=== PATIENT | male | born 1945 | race Caucasian/White ===

== ENCOUNTER 2020-08-03 17:30 | Observation (INO) | payer MEDICARE, OTHER ==
--- NOTE | 2020-08-03 18:12 | EDM.PDOC ---
ED HPI GENERAL MEDICAL PROBLEM - General Stated Complaint: CHEST PAIN Time Seen by Provider: 08/03/20 18:12 Source of Information: Reports: Patient History Limitations: Reports: No Limitations - History of Present Illness INITIAL COMMENTS - FREE TEXT/NARRATIVE: 75-year-old male who reports that approximately 3 PM today he was at his work and was really not doing anything at the time and he developed an aching pain in his left parasternal chest that did seem to radiate to his right subscapular region at times but did not really seem to have anything that made it better or worse. It did seem to get worse over time and he was having his brakes sometime between 4 and 4:30 he noted that the pain was worse and when he went back to work at 4:30 to 5 PM he told one of the nursing staff and they told him that he needed to go to the hospital for evaluation. Upon arrival here at approximate 5:30 PM he reports the pain basically went away and he is pain-free now as I am evaluating him. He reports that his pain is now 0/10. He states that at its worst it was a 4/10. There was no nausea or vomiting. No shortness of breath. No arm pain, no neck pain, no jaw pain. There was no pain with movement of his arm or palpation. He did not feel the pain seemed to change with activity or with rest. There was no weakness or dizziness. No syncope or presyncope. He reports that he has had this pain in the past and the pain seemed to come on in a similar manner and lasted for about an hour and then seemed to go away. He has sought no medical care in regard to this. He did have cystoscopy with bladder stone removal about 5-6 weeks ago and had no problems during that surgery. There are other associated signs or symptoms. There are no other modifying factors. It should be noted that the patient had Covid 19 in March 2020 and he has also had Covid vaccines. He is tested weakly at [facility] and had a test on that is not back yet. Onset: Today (He p.m.) Duration: Resolved Prior to Arrival (Resolved at arrival.) Location: Reports: Chest Quality: Reports: Ache Severity: Moderate Improves with: Reports: None Worsens with: Reports: None Context: Reports: Other (As above) Associated Symptoms: Reports: No Other Symptoms (Other than as above.) Treatments [employer]: Reports: Other (see below) (Nothing.) - Related Data Allergies Allergy/AdvReac Type Severity Reaction Status Date / Time No Known Allergies Allergy Verified 08/03/20 18:15 Past Medical History Cardiovascular History: Reports: Hypertension Gastrointestinal History: Reports: GERD Genitourinary History: Reports: Other (See Below) (Bladder stones) Psychiatric History: Reports: 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 Last Hemoglobin A1c was 7.8.) Oncologic (Cancer) History: Reports: Bladder - Past Surgical History GI Surgical History: Reports: Colonoscopy, EGD Male Surgical History: Reports: TURBT-Transurethral Resection of Bladder Tumor, Other (See Below) (Removal of bladder stone) Social & Family History - Tobacco Use Tobacco Use Status *Q: Former Tobacco User (Quit in 2005.) - Alcohol Use Alcohol Use History: Yes Alcohol Use in Last Twelve Months: No Alcohol Use Comment: Sober for the past 20 years. 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[employer]) ED ROS GENERAL - Review of Systems Review Of Systems: See Below Constitutional: Reports: No Symptoms HEENT: Reports: No Symptoms Respiratory: Reports: No Symptoms Cardiovascular: Reports: Chest Pain GI/Abdominal: Reports: No Symptoms : Reports: No Symptoms Musculoskeletal: Reports: No Symptoms Skin: Reports: No Symptoms Neurological: Reports: No Symptoms Psychiatric: Reports: No Symptoms Hematologic/Lymphatic: Reports: No Symptoms Immunologic: Reports: No Symptoms ED EXAM, GENERAL - Physical Exam Exam: See Below Exam Limited By: No Limitations General Appearance: Alert, WD/WN, No Apparent Distress Eye Exam: Bilateral Eye: EOMI, Normal Inspection, PERRL Ears: Normal External Exam, Hearing Grossly Normal Ear Exam: Bilateral Ear: Auricle Normal Nose: Normal Inspection, Normal Mucosa, No Blood Throat/Mouth: Normal Inspection, Normal Oropharynx, Normal Voice, No Airway Compromise Head: Atraumatic, Normocephalic Neck: Normal Inspection, Supple, Non-Tender, Full Range of Motion Respiratory/Chest: No Respiratory Distress, Lungs Clear, Normal Breath Sounds, No Accessory Muscle Use, Chest Non-Tender Cardiovascular: Normal Peripheral Pulses, Regular Rate, Rhythm, No Edema, No JVD Peripheral Pulses: 2+: Radial (L), Radial (R), Dorsalis Pedis (L), Dorsalis Pedis (R) GI/Abdominal: Normal Bowel Sounds, Soft, Non-Tender, No Mass Back Exam: Normal Inspection, Full Range of Motion Extremities: Normal Inspection, Normal Range of Motion, Non-Tender, No Pedal Edema, Normal Capillary Refill Neurological: Alert, Oriented, CN II-XII Intact, Normal Cognition, No Motor/Sensory Deficits Psychiatric: Normal Affect Skin Exam: Warm, Dry, Intact, Normal Color, No Rash #1 Interpretation EKG Date: 08/03/20 Time: 17:46 Rhythm: NSR Rate (Beats/Min): 74 [place]: Normal P-Wave: Present QRS: Normal ST-T: Normal QT: Normal Comparison: NA - No Prior EKG Course - Vital Signs Last Recorded V/S: Last Vital Signs Temp 36.6 C 08/03/20 18:28 Pulse 75 08/03/20 18:28 Resp 18 08/03/20 18:28 BP 132/64 08/03/20 18:28 Pulse Ox 97 08/03/20 18:28 - Orders/Labs/Meds Orders: Active Orders 24 hr Category Date Time Status Admission Status [Patient Status] [ADT] Routine ADT 08/03/20 19:26 Active Blood Glucose Check, Bedside [RC] QIDACANDBED Care 08/03/20 19:28 Active Cardiac Monitoring [RC] .As Directed Care 08/03/20 19:26 Active EKG Documentation Completion [RC] ASDIRECTED Care 08/03/20 18:15 Active Height and Weight [RC] UPON Care 08/03/20 19:28 Active Oxygen Therapy [RC] PRN Care 08/03/20 19:28 Active VTE/DVT Education [RC] Per Unit Routine Care 08/03/20 19:28 Active Vital Signs [RC] Q4H Care 08/03/20 19:28 Active Consistent Carbohydrate Diet [DIET] Diet 08/03/20 Dinner Active Chest 1V Frontal [CR] Stat Exams 08/03/20 18:50 Taken BASIC METABOLIC PANEL,BMP [CHEM] AM Lab 08/04/20 05:11 Ordered CBC W/O DIFF,HEMOGRAM [HEME] AM Lab 08/04/20 05:11 Ordered UA W/MICROSCOPIC [URIN] Stat Lab 08/03/20 19:45 Received Acetaminophen [TylenoL] Med 08/03/20 19:28 Active 650 mg PO Q4H PRN Magnesium Sulfate/Water [Magnesium Sulfate in Water 2 Med 08/03/20 19:30 Active GM/50 ML] 2 gm in 50 ml IV ONETIME Ondansetron [Zofran] Med 08/03/20 19:28 Active 4 mg IV Q6H PRN Sodium Chloride 0.9% [Saline Flush] Med 08/03/20 18:15 Active 10 ml FLUSH ASDIRECTED PRN Peripheral IV Insertion Adult [OM.PC] Routine Oth 08/03/20 18:15 Ordered Resuscitation Status Routine Resus Stat 08/03/20 19:28 Ordered EKG 12 Lead [EK] Routine Ther 08/03/20 18:15 Ordered Medication Orders Acetaminophen (Acetaminophen 325 Mg Tab) 650 mg PO Q4H PRN PRN Reason: Pain (Mild 1-3)/fever Magnesium Sulfate (Magnesium Sulfate In Water 2 Gm/50 Ml) 2 gm in 50 mls @ 100 mls/hr IV ONETIME CR Ondansetron HCl (Ondansetron 4 Mg/2 Ml Sdv) 4 mg IV Q6H PRN PRN Reason: Nausea/Vomiting Sodium Chloride (Sodium Chloride 0.9% 10 Ml Syringe) 10 ml FLUSH ASDIRECTED PRN PRN Reason: Keep Vein Open Labs: Laboratory Tests 08/03/20 08/03/20 08/03/20 Range/Units 18:10 18:10 18:10 WBC 7.8 (3.2-10.1) x10-3/uL RBC 5.83 (3.90-5.90) x10(6)uL Hgb 17.3 (12.9-17.7) g/dL Hct 51.5 H (38.3-50.1) % MCV 88.4 (80.8-98.7) fL MCH 29.7 (27.0-33.3) pg MCHC 33.6 (28.7-35.3) g/dL RDW 14.6 (12.4-15.0) % Plt Count 138 (117-477) x10(3)uL MPV 10.1 (6.7-11.0) fL Neut % (Auto) 76.0 H (40.3-71.8) % Lymph % (Auto) 13.6 L (15.8-45.3) % [place] % (Auto) 8.5 (5.5-15.2) % Eos % (Auto) 1.3 (0.1-6.8) % Baso % (Auto) 0.6 (0.3-3.8) % Neut # (Auto) 6.0 (1.7-6.9) x10-3/uL Lymph # (Auto) 1.1 (0.5-4.5) x10-3/uL [place] # (Auto) 0.7 (0.0-1.2) x10-3/uL Eos # (Auto) 0.1 (0.0-0.6) x10-3/uL Baso # (Auto) 0.0 (0.0-0.3) x10-3/uL D-Dimer, Quantitative (0.0-0.59) mg/LFEU Sodium 139 (135-145) mmol/L Potassium 3.5 (3.5-5.3) mmol/L Chloride 101 (100-110) mmol/L Carbon Dioxide 26 (21-32) mmol/L BUN 17 (7-18) mg/dL Creatinine 1.3 (0.70-1.30) mg/dL Est Cr Clr Drug Dosing 50.69 mL/min Estimated GFR (MDRD) 54 L (>60) BUN/Creatinine Ratio 13.1 (9-20) Glucose 155 H (80-116) mg/dL Calcium 8.9 (8.6-10.2) mg/dL Magnesium 1.7 L (1.8-2.5) mg/dL Total Bilirubin 0.5 (0.1-1.3) mg/dL AST 26 H (5-25) IU/L ALT 49 H (12-36) U/L Alkaline Phosphatase 66 (56-112) IU/L Troponin I 18.4 (4.0-60.3) pg/mL Total Protein 7.6 (6.0-8.0) g/dL Albumin 3.7 (3.2-4.6) g/dL Globulin 3.9 g/dL Albumin/Globulin Ratio 1.0 03// Range/Units 18:10 WBC (3.2-10.1) x10-3/uL RBC (3.90-5.90) x10(6)uL Hgb (12.9-17.7) g/dL Hct (38.3-50.1) % MCV (80.8-98.7) fL MCH (27.0-33.3) pg MCHC (28.7-35.3) g/dL RDW (12.4-15.0) % Plt Count (117-477) x10(3)uL MPV (6.7-11.0) fL Neut % (Auto) (40.3-71.8) % Lymph % (Auto) (15.8-45.3) % [place] % (Auto) (5.5-15.2) % Eos % (Auto) (0.1-6.8) % Baso % (Auto) (0.3-3.8) % Neut # (Auto) (1.7-6.9) x10-3/uL Lymph # (Auto) (0.5-4.5) x10-3/uL [place] # (Auto) (0.0-1.2) x10-3/uL Eos # (Auto) (0.0-0.6) x10-3/uL Baso # (Auto) (0.0-0.3) x10-3/uL D-Dimer, Quantitative 0.28 (0.0-0.59) mg/LFEU Sodium (135-145) mmol/L Potassium (3.5-5.3) mmol/L Chloride (100-110) mmol/L Carbon Dioxide (21-32) mmol/L BUN (7-18) mg/dL Creatinine (0.70-1.30) mg/dL Est Cr Clr Drug Dosing mL/min Estimated GFR (MDRD) (>60) BUN/Creatinine Ratio (9-20) Glucose (80-116) mg/dL Calcium (8.6-10.2) mg/dL Magnesium (1.8-2.5) mg/dL Total Bilirubin (0.1-1.3) mg/dL AST (5-25) IU/L ALT (12-36) U/L Alkaline Phosphatase (56-112) IU/L Troponin I (4.0-60.3) pg/mL Total Protein (6.0-8.0) g/dL Albumin (3.2-4.6) g/dL Globulin g/dL Albumin/Globulin Ratio Meds: Medications Generic Name Dose Route Start Last Admin Trade Name Freq PRN Reason Stop Dose Admin Acetaminophen 650 mg 08/03/20 19:28 Acetaminophen 325 Mg Tab PO Q4H PRN Pain (Mild 1-3)/fever Magnesium Sulfate 2 gm in 50 mls @ 100 mls/hr 08/03/20 19:30 Magnesium Sulfate In Water 2 Gm/50 Ml IV ONETIME CR Ondansetron HCl 4 mg 08/03/20 19:28 Ondansetron 4 Mg/2 Ml Sdv IV Q6H PRN Nausea/Vomiting Sodium Chloride 10 ml 08/03/20 18:15 Sodium Chloride 0.9% 10 Ml Syringe FLUSH ASDIRECTED PRN Keep Vein Open Discontinued Medications Generic Name Dose Route Start Last Admin Trade Name Freq PRN Reason Stop Dose Admin Aspirin 324 mg 08/03/20 18:49 08/03/20 19:12 Aspirin 81 Mg Tab.Chew PO 08/03/20 18:50 324 mg ONETIME ONE Administration Enoxaparin Sodium 90 mg 08/03/20 20:01 Enoxaparin 100 Mg/1 Ml Syringe SUBCUT 08/03/20 20:02 ONETIME ONE - Radiology Interpretation Free Text/Narrative:: Portable chest x-ray shows no acute disease. There is evidence of mild COPD changes. - Re-Assessments/Exams Free Text/Narrative Re-Assessment/Exam: 08/03/20 19:30: Initial troponin was normal. He remains chest pain-free. His EKG also was reassuring and showed no evidence of an injury pattern or any evidence of a current of ischemia. He has had this chest pain in the past and he is a diabetic male. I feel that his risk for coronary artery disease are moderate and I feel that he would benefit from admission with serial cardiac enzymes and cardiac monitoring. I feel that an observation admission would be appropriate for this and I discussed this with the patient and he would be in agreement with this plan. The patient was given aspirin 324 mg by mouth. He continues to remain chest pain-free at present. He is hemodynamically and neurologically stable. I will place admission orders. Evaluation and care will be transferred to Dr. Sullivan at 7 AM on 08/04/2020. Overnight, Dr. Thayer will be the hospitalist following the patient. 08/03/20 20:05: It should be noted that the patient was given Lovenox 90 mg subcutaneously at around 8 PM tonight. Any further dosing would be up to Dr. Sullivan. The patient's rapid covid is pending. Departure - Departure Time of Disposition: 19:50 Disposition: Refer to Observation Condition: Fair (Stable.) Clinical Impression: Diabetes mellitus type 2, diet-controlled Chest pain Qualifiers: Chest pain type: unspecified Qualified Code(s): R07.9 - Chest pain, unspecified Sepsis Event Note (ED) - Focused Exam Vital Signs: Vital Signs Temp Pulse Resp BP Pulse Ox 08/03/20 18:28 36.6 C 75 18 132/64 97 - My Orders Last 24 Hours: My Active Orders 08/03/20 Dinner Consistent Carbohydrate Diet [DIET] 08/03/20 18:15 EKG Documentation Completion [RC] ASDIRECTED Sodium Chloride 0.9% [Saline Flush] 10 ml FLUSH ASDIRECTED PRN Peripheral IV Insertion Adult [OM.PC] Routine EKG 12 Lead [EK] Routine 08/03/20 18:50 Chest 1V Frontal [CR] Stat 08/03/20 19:26 Admission Status [Patient Status] [ADT] Routine Cardiac Monitoring [RC] .As Directed 08/03/20 19:28 Blood Glucose Check, Bedside [RC] QIDACANDBED Height and Weight [RC] UPON Oxygen Therapy [RC] PRN VTE/DVT Education [RC] Per Unit Routine Vital Signs [RC] Q4H Acetaminophen [TylenoL] 650 mg PO Q4H PRN Ondansetron [Zofran] 4 mg IV Q6H PRN Resuscitation Status Routine 08/03/20 19:30 Magnesium Sulfate/Water [Magnesium Sulfate in Water 2 GM/50 ML] 2 gm in 50 ml IV ONETIME 08/03/20 19:45 UA W/MICROSCOPIC [URIN] Stat 08/04/20 05:11 BASIC METABOLIC PANEL,BMP [CHEM] AM CBC W/O DIFF,HEMOGRAM [HEME] AM - Assessment/Plan Last 24 Hours: My Active Orders 08/03/20 Dinner Consistent Carbohydrate Diet [DIET] 08/03/20 18:15 EKG Documentation Completion [RC] ASDIRECTED Sodium Chloride 0.9% [Saline Flush] 10 ml FLUSH ASDIRECTED PRN Peripheral IV Insertion Adult [OM.PC] Routine EKG 12 Lead [EK] Routine 08/03/20 18:50 Chest 1V Frontal [CR] Stat 08/03/20 19:26 Admission Status [Patient Status] [ADT] Routine Cardiac Monitoring [RC] .As Directed 08/03/20 19:28 Blood Glucose Check, Bedside [RC] QIDACANDBED Height and Weight [RC] UPON Oxygen Therapy [RC] PRN VTE/DVT Education [RC] Per Unit Routine Vital Signs [RC] Q4H Acetaminophen [TylenoL] 650 mg PO Q4H PRN Ondansetron [Zofran] 4 mg IV Q6H PRN Resuscitation Status Routine 08/03/20 19:30 Magnesium Sulfate/Water [Magnesium Sulfate in Water 2 GM/50 ML] 2 gm in 50 ml IV ONETIME 08/03/20 19:45 UA W/MICROSCOPIC [URIN] Stat 08/04/20 05:11 BASIC METABOLIC PANEL,BMP [CHEM] AM CBC W/O DIFF,HEMOGRAM [HEME] AM
[2020-08-03] MEDS ORDERED: Sodium Chloride 0.9% 10 ML Syringe FLUSH PRN (18:15)
[2020-08-03] MEDS ORDERED: Aspirin 81 MG Tab.Chew PO ONE (18:49)
[2020-08-03] MEDS ORDERED: Acetaminophen 325 MG Tab PO PRN (19:28)
[2020-08-03] MEDS ORDERED: Ondansetron 4 MG/2 ML SDV IV PRN (19:28)
[2020-08-03] MEDS ORDERED: Magnesium Sulfate/Water 2 GM/50 ML BAG IV SCH (19:30)
[2020-08-03] MEDS ORDERED: Enoxaparin 100 MG/1 ML Syringe SUBCUT ONE (20:01)
[2020-08-04] MEDS ORDERED: Non-Formulary Medication 1 Each (Omeprazole [Omeprazole] 20 MG Cap.Cr) PO SCH (09:00)
[2020-08-04] MEDS ORDERED: Hydrochlorothiazide/Losartan 12.5-100 mg Tab PO SCH (09:00)
[2020-08-04] MEDS ORDERED: Aspirin 81 MG Tab.Chew PO SCH (09:00)
[2020-08-04] MEDS ORDERED: Magnesium Oxide 400 MG Tab PO SCH (09:30)
--- NOTE | 2020-08-04 10:59 | CR ---
CHEST ONE VIEW [id number] INDICATION: Chest pain. AP portable upright view of the chest was obtained 08/03/2020--no comparisons. The heart appears to be near the upper limits of normal in size. Minimal calcification suggested in the arch of the aorta. Overlying EKG leads are noted. Somewhat heavy markings are noted in the mid to lower lung blankenship, most likely fibrotic in nature, without a definite active infiltrate or effusion. Diaphragm leads are somewhat flattened with hyperaeration suggesting COPD--correlate clinically. IMPRESSION: 1. No definite acute process. 2. Probable ASHD. 3. Probable COPD--correlate clinically. 4. Probable mild pulmonary fibrosis. MTDD
--- NOTE | 2020-08-04 12:11 | PCM.HP.2 ---
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 He states the pain remained central, not worse or better with rest or exertion, did not feel deep, more in the bone. He states he has been having pain under his right shoulder blade on and off since he had Covid in March. He was not hospitalized, lost his sense of taste & smell, which is still not back to normal. He gets weekly tested at the half-way, he was negative today. After arrival to the ER, the pain resolved without intervention. EKGs did not show any ischemic changes. 2 sets of troponin were negative. Magnesium was 1.7. He normally takes Magnesium but had stopped a few months ago. Was also taking OTC supplements for his cholesterol that he also had stopped, has been eating more jerky, chocolate and [place] pop. His HgbA1c at last check was 7.7, he just had blood work done on 07/31 with his primary doctor, Maryanne Orosco D.O. at [facility]. He has not seen her to go over the labs yet. He had bladder cancer a few months ago, was surgical removed, did not have any chemotherapy. He also had bladder stone removed a month ago, has had hematuria with it, worsened today after received Lovenox injection yesterday in ER. Mid-Anterior Chest Pain Score (Numeric/FACES): 0 - Related Data Allergies/Adverse Reactions: Allergies Allergy/AdvReac Type Severity Reaction Status Date / Time No Known Allergies Allergy Verified 08/03/20 18:15 Home Medications: Home Meds Aspirin 81 mg PO DAILY 08/04/20 [History] Losartan/Hydrochlorothiazide [Losartan-HCTZ 100-12.5 MG] 1 tab PO DAILY 08/04/20 [History] Omeprazole 20 mg PO DAILY 08/04/20 [History] Past Medical History HEENT History: Reports: Impaired Vision Cardiovascular History: Reports: Hypertension Gastrointestinal History: Reports: GERD Genitourinary History: Reports: Other (See Below) (bladder cancer, bladder s tone) Psychiatric History: Reports: Addiction Other Psychiatric History: 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, Smoked , and drank a lot of caffieine, but stooped in 2005 Endocrine/Metabolic History: Reports: Diabetes, Type II Oncologic (Cancer) History: Reports: Bladder - Past Surgical History GI Surgical History: Reports: Colonoscopy, EGD Male Surgical History: Reports: TURBT-Transurethral Resection of Bladder Tumor, Other (See Below) Social & Family History - Family History Family Medical History: No Pertinent Family History - Tobacco Use Tobacco Use Status *Q: Never Tobacco User Years of Tobacco use: 35 Used Tobacco, but Quit: Yes Month/Year Tobacco Last Used: 05/07/2006 - Caffeine Use Caffeine Use: Reports: Coffee - Recreational Drug Use Recreational Drug Use: No 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 Denies: Post Nasal Drip, Sinus Congestion, Sore Throat, Visual Changes Pulmonary: Denies: Shortness of Breath, Cough Cardiovascular: Denies: Chest Pain, Dyspnea on Exertion, Edema, Lightheadedness Gastrointestinal: Denies: Abdominal Pain, Constipation, Diarrhea, Nausea, Vomiting Genitourinary: Reports: Hematuria. Denies: Frequency, Urgency Musculoskeletal: Denies: Shoulder Pain, Arm Pain Skin: Reports: No Symptoms Psychiatric: Reports: No Symptoms Hematologic/Lymphatic: Reports: No Symptoms Immunologic: Reports: No Symptoms Exam - Exam Exam: See Below - Vital Signs Vital Signs: Last Vital Signs Temp 97.8 F 08/04/20 08:00 Pulse 71 08/04/20 08:00 Resp 18 08/04/20 08:00 BP 148/80 H 08/04/20 08:00 Pulse Ox 94 L 08/04/20 08:00 Weight: 199 lb 5 oz - Exam Quality Assessment: No: Supplemental Oxygen General: Alert, Oriented, Cooperative. No: Mild Distress HEENT: PERRLA, Conjunctiva Clear, EOMI, Hearing Intact, Mucosa Moist & [place] Neck: Supple, Trachea Midline. No: Lymphadenopathy Lungs: Clear to Auscultation, Normal Respiratory Effort, Other (Chest wall: NT). No: Crackles, Wheezing Cardiovascular: Regular Rate, Regular Rhythm. No: Systolic Murmur, Diastolic Murmur GI/Abdominal Exam: Normal Bowel Sounds, Soft, Non-Tender, No Distention (Male) Exam: Deferred Rectal (Males) Exam: Deferred Extremities: No Pedal Edema, Normal Capillary Refill Peripheral Pulses: 2+: Radial (L), Radial (R) Skin: Warm, Dry, Intact Neurological: Cranial Nerves Intact, Normal Speech Neuro Extensive - Mental Status: Normal Mood/Affect, Normal Cognition - Patient Data Lab Results Last 24 hrs: Laboratory Results - last 24 hr 08/03/20 08/03/20 08/03/20 Range/Units 18:10 18:10 18:10 WBC 7.8 (3.2-10.1) x10-3/uL RBC 5.83 (3.90-5.90) x10(6)uL Hgb 17.3 (12.9-17.7) g/dL Hct 51.5 H (38.3-50.1) % MCV 88.4 (80.8-98.7) fL MCH 29.7 (27.0-33.3) pg MCHC 33.6 (28.7-35.3) g/dL RDW 14.6 (12.4-15.0) % Plt Count 138 (117-477) x10(3)uL MPV 10.1 (6.7-11.0) fL Neut % (Auto) 76.0 H (40.3-71.8) % Lymph % (Auto) 13.6 L (15.8-45.3) % [place] % (Auto) 8.5 (5.5-15.2) % Eos % (Auto) 1.3 (0.1-6.8) % Baso % (Auto) 0.6 (0.3-3.8) % Neut # (Auto) 6.0 (1.7-6.9) x10-3/uL Lymph # (Auto) 1.1 (0.5-4.5) x10-3/uL [place] # (Auto) 0.7 (0.0-1.2) x10-3/uL Eos # (Auto) 0.1 (0.0-0.6) x10-3/uL Baso # (Auto) 0.0 (0.0-0.3) x10-3/uL D-Dimer, Quantitative (0.0-0.59) mg/LFEU Sodium 139 (135-145) mmol/L Potassium 3.5 (3.5-5.3) mmol/L Chloride 101 (100-110) mmol/L Carbon Dioxide 26 (21-32) mmol/L BUN 17 (7-18) mg/dL Creatinine 1.3 (0.70-1.30) mg/dL Est Cr Clr Drug Dosing 50.69 mL/min Estimated GFR (MDRD) 54 L (>60) BUN/Creatinine Ratio 13.1 (9-20) Glucose 155 H (80-116) mg/dL POC Glucose (74-100) mg/dL Calcium 8.9 (8.6-10.2) mg/dL Magnesium 1.7 L (1.8-2.5) mg/dL Total Bilirubin 0.5 (0.1-1.3) mg/dL AST 26 H (5-25) IU/L ALT 49 H (12-36) U/L Alkaline Phosphatase 66 (56-112) IU/L Troponin I 18.4 (4.0-60.3) pg/mL Total Protein 7.6 (6.0-8.0) g/dL Albumin 3.7 (3.2-4.6) g/dL Globulin 3.9 g/dL Albumin/Globulin Ratio 1.0 Triglycerides (15-150) mg/dL Cholesterol (50-200) mg/dL LDL Cholesterol Direct (60-130) mg/dL HDL Cholesterol (40-75) mg/dL Cholesterol/HDL Ratio (0-5) Urine Color (YELLOW) Urine Appearance (CLEAR) Urine pH (5.0-6.5) Ur Specific [place] (1.010-1.025) Urine Protein (NEGATIVE) mg/dL Urine Glucose (UA) (NORMAL) mg/dL Urine Ketones (NEGATIVE) mg/dL Urine Occult Blood (NEGATIVE) Urine Nitrite (NEGATIVE) Urine Bilirubin (NEGATIVE) Urine Urobilinogen (NEGATIVE) mg/dL Ur Leukocyte Esterase (NEGATIVE) Urine RBC (0-5) Urine WBC (0-5) Ur Squamous Epith Cells (NS,R,O) Urine Bacteria (NS) SARS-CoV-2 RNA (RICK) (NEGATIVE) 08/03/20 08/03/20 08/03/20 Range/Units 18:10 19:25 19:45 WBC (3.2-10.1) x10-3/uL RBC (3.90-5.90) x10(6)uL Hgb (12.9-17.7) g/dL Hct (38.3-50.1) % MCV (80.8-98.7) fL MCH (27.0-33.3) pg MCHC (28.7-35.3) g/dL RDW (12.4-15.0) % Plt Count (117-477) x10(3)uL MPV (6.7-11.0) fL Neut % (Auto) (40.3-71.8) % Lymph % (Auto) (15.8-45.3) % [place] % (Auto) (5.5-15.2) % Eos % (Auto) (0.1-6.8) % Baso % (Auto) (0.3-3.8) % Neut # (Auto) (1.7-6.9) x10-3/uL Lymph # (Auto) (0.5-4.5) x10-3/uL [place] # (Auto) (0.0-1.2) x10-3/uL Eos # (Auto) (0.0-0.6) x10-3/uL Baso # (Auto) (0.0-0.3) x10-3/uL D-Dimer, Quantitative 0.28 (0.0-0.59) mg/LFEU Sodium (135-145) mmol/L Potassium (3.5-5.3) mmol/L Chloride (100-110) mmol/L Carbon Dioxide (21-32) mmol/L BUN (7-18) mg/dL Creatinine (0.70-1.30) mg/dL Est Cr Clr Drug Dosing mL/min Estimated GFR (MDRD) (>60) BUN/Creatinine Ratio (9-20) Glucose (80-116) mg/dL POC Glucose (74-100) mg/dL Calcium (8.6-10.2) mg/dL Magnesium (1.8-2.5) mg/dL Total Bilirubin (0.1-1.3) mg/dL AST (5-25) IU/L ALT (12-36) U/L Alkaline Phosphatase (56-112) IU/L Troponin I (4.0-60.3) pg/mL Total Protein (6.0-8.0) g/dL Albumin (3.2-4.6) g/dL Globulin g/dL Albumin/Globulin Ratio Triglycerides (15-150) mg/dL Cholesterol (50-200) mg/dL LDL Cholesterol Direct (60-130) mg/dL HDL Cholesterol (40-75) mg/dL Cholesterol/HDL Ratio (0-5) Urine Color Yellow (YELLOW) Urine Appearance Clear (CLEAR) Urine pH 6.0 (5.0-6.5) Ur Specific [place] 1.020 (1.010-1.025) Urine Protein Negative (NEGATIVE) mg/dL Urine Glucose (UA) Normal (NORMAL) mg/dL Urine Ketones Negative (NEGATIVE) mg/dL Urine Occult Blood Large H (NEGATIVE) Urine Nitrite Negative (NEGATIVE) Urine Bilirubin Negative (NEGATIVE) Urine Urobilinogen Normal (NEGATIVE) mg/dL Ur Leukocyte Esterase Negative (NEGATIVE) Urine RBC 5-10 H (0-5) Urine WBC 0-5 (0-5) Ur Squamous Epith Cells Occasional (NS,R,O) Urine Bacteria Few H (NS) SARS-CoV-2 RNA (RICK) Negative (NEGATIVE) 08/03/20 08/04/20 08/04/20 Range/Units 21:25 06:05 06:05 WBC 8.7 (3.2-10.1) x10-3/uL RBC 6.05 H (3.90-5.90) x10(6)uL Hgb 18.0 H (12.9-17.7) g/dL Hct 53.8 H (38.3-50.1) % MCV 89.0 (80.8-98.7) fL MCH 29.7 (27.0-33.3) pg MCHC 33.4 (28.7-35.3) g/dL RDW 14.8 (12.4-15.0) % Plt Count 140 (117-477) x10(3)uL MPV (6.7-11.0) fL Neut % (Auto) (40.3-71.8) % Lymph % (Auto) (15.8-45.3) % [place] % (Auto) (5.5-15.2) % Eos % (Auto) (0.1-6.8) % Baso % (Auto) (0.3-3.8) % Neut # (Auto) (1.7-6.9) x10-3/uL Lymph # (Auto) (0.5-4.5) x10-3/uL [place] # (Auto) (0.0-1.2) x10-3/uL Eos # (Auto) (0.0-0.6) x10-3/uL Baso # (Auto) (0.0-0.3) x10-3/uL D-Dimer, Quantitative (0.0-0.59) mg/LFEU Sodium 133 L (135-145) mmol/L Potassium 4.1 (3.5-5.3) mmol/L Chloride 105 (100-110) mmol/L Carbon Dioxide 24 (21-32) mmol/L BUN 18 (7-18) mg/dL Creatinine 1.0 (0.70-1.30) mg/dL Est Cr Clr Drug Dosing 67.98 mL/min Estimated GFR (MDRD) > 60 (>60) BUN/Creatinine Ratio 18.0 (9-20) Glucose 133 H (80-116) mg/dL POC Glucose (74-100) mg/dL Calcium 9.1 (8.6-10.2) mg/dL Magnesium (1.8-2.5) mg/dL Total Bilirubin (0.1-1.3) mg/dL AST (5-25) IU/L ALT (12-36) U/L Alkaline Phosphatase (56-112) IU/L Troponin I 53.7 (4.0-60.3) pg/mL Total Protein (6.0-8.0) g/dL Albumin (3.2-4.6) g/dL Globulin g/dL Albumin/Globulin Ratio Triglycerides (15-150) mg/dL Cholesterol (50-200) mg/dL LDL Cholesterol Direct (60-130) mg/dL HDL Cholesterol (40-75) mg/dL Cholesterol/HDL Ratio (0-5) Urine Color (YELLOW) Urine Appearance (CLEAR) Urine pH (5.0-6.5) Ur Specific [place] (1.010-1.025) Urine Protein (NEGATIVE) mg/dL Urine Glucose (UA) (NORMAL) mg/dL Urine Ketones (NEGATIVE) mg/dL Urine Occult Blood (NEGATIVE) Urine Nitrite (NEGATIVE) Urine Bilirubin (NEGATIVE) Urine Urobilinogen (NEGATIVE) mg/dL Ur Leukocyte Esterase (NEGATIVE) Urine RBC (0-5) Urine WBC (0-5) Ur Squamous Epith Cells (NS,R,O) Urine Bacteria (NS) SARS-CoV-2 RNA (RICK) (NEGATIVE) 08/04/20 08/04/20 08/04/20 Range/Units 06:05 06:05 11:38 WBC (3.2-10.1) x10-3/uL RBC (3.90-5.90) x10(6)uL Hgb (12.9-17.7) g/dL Hct (38.3-50.1) % MCV (80.8-98.7) fL MCH (27.0-33.3) pg MCHC (28.7-35.3) g/dL RDW (12.4-15.0) % Plt Count (117-477) x10(3)uL MPV (6.7-11.0) fL Neut % (Auto) (40.3-71.8) % Lymph % (Auto) (15.8-45.3) % [place] % (Auto) (5.5-15.2) % Eos % (Auto) (0.1-6.8) % Baso % (Auto) (0.3-3.8) % Neut # (Auto) (1.7-6.9) x10-3/uL Lymph # (Auto) (0.5-4.5) x10-3/uL [place] # (Auto) (0.0-1.2) x10-3/uL Eos # (Auto) (0.0-0.6) x10-3/uL Baso # (Auto) (0.0-0.3) x10-3/uL D-Dimer, Quantitative (0.0-0.59) mg/LFEU Sodium (135-145) mmol/L Potassium (3.5-5.3) mmol/L Chloride (100-110) mmol/L Carbon Dioxide (21-32) mmol/L BUN (7-18) mg/dL Creatinine (0.70-1.30) mg/dL Est Cr Clr Drug Dosing mL/min Estimated GFR (MDRD) (>60) BUN/Creatinine Ratio (9-20) Glucose (80-116) mg/dL POC Glucose 106 H (74-100) mg/dL Calcium (8.6-10.2) mg/dL Magnesium (1.8-2.5) mg/dL Total Bilirubin (0.1-1.3) mg/dL AST (5-25) IU/L ALT (12-36) U/L Alkaline Phosphatase (56-112) IU/L Troponin I (4.0-60.3) pg/mL Total Protein (6.0-8.0) g/dL Albumin (3.2-4.6) g/dL Globulin g/dL Albumin/Globulin Ratio Triglycerides 921 H (15-150) mg/dL Cholesterol 235 H (50-200) mg/dL LDL Cholesterol Direct 95 (60-130) mg/dL HDL Cholesterol 22 L (40-75) mg/dL Cholesterol/HDL Ratio 10.7 H (0-5) Urine Color (YELLOW) Urine Appearance (CLEAR) Urine pH (5.0-6.5) Ur Specific [place] (1.010-1.025) Urine Protein (NEGATIVE) mg/dL Urine Glucose (UA) (NORMAL) mg/dL Urine Ketones (NEGATIVE) mg/dL Urine Occult Blood (NEGATIVE) Urine Nitrite (NEGATIVE) Urine Bilirubin (NEGATIVE) Urine Urobilinogen (NEGATIVE) mg/dL Ur Leukocyte Esterase (NEGATIVE) Urine RBC (0-5) Urine WBC (0-5) Ur Squamous Epith Cells (NS,R,O) Urine Bacteria (NS) SARS-CoV-2 RNA (RICK) (NEGATIVE) Result Diagrams: 08/04/20 06:05 08/04/20 06:05 Sepsis Event Note - Evaluation Sepsis Screening Result: No Definite Risk - Focused Exam Vital Signs: Vital Signs Temp Pulse Resp BP Pulse Ox 08/04/20 08:00 97.8 F 71 18 148/80 H 94 L 08/04/20 06:00 97.8 F 70 16 139/80 95 03/23/21 01:37 98.0 F 74 16 147/77 H 95 *Q Meaningful Use (ADM) - VTE *Q VTE Pharmacological Contraindications *Q: Risk of Bleeding - VTE Risk Assess *Q Each Risk Factor Represents 1 Point: None Total Score 1 Point Risk Factors: 0 Each Risk Factor Represents 2 Points: Malignancy (present or previous) Total Score 2 Point Risk Factors: 2 Each Risk Factor Represents 3 Points: Age 75 Years or Greater Total Score 3 Point Risk Factors: 3 Each Risk Factor Represents 5 Points: None Total Score 5 Point Risk Factors: 0 Venous Thromboembolism Risk Factor Score *Q: 5 - Problem List (1) Chest pain SNOMED Code(s): 46527903 ICD Code: R07.9 - CHEST PAIN, UNSPECIFIED Status: Acute Current Visit: Yes Qualifiers: Chest pain type: unspecified Qualified Code(s): R07.9 - Chest pain, unspecified (2) Hyperlipidemia SNOMED Code(s): 63509956 ICD Code: E78.5 - HYPERLIPIDEMIA, UNSPECIFIED Status: Chronic Current Visit: Yes (3) Bladder cancer SNOMED Code(s): 132476710 ICD Code: C67.9 - MALIGNANT NEOPLASM OF BLADDER, UNSPECIFIED Status: Acute Current Visit: Yes Onset Date: ~05/2020 (4) Hematuria SNOMED Code(s): 70130924 ICD Code: R31.9 - HEMATURIA, UNSPECIFIED Status: Acute Current Visit: Yes (5) History of bladder stone SNOMED Code(s): 720399190 ICD Code: Z87.448 - PERSONAL HISTORY OF OTHER DISEASES OF URINARY SYSTEM Status: Acute Current Visit: Yes Onset Date: ~06/2020 (6) Diabetes mellitus type 2, diet-controlled SNOMED Code(s): 511680586291984, 974800914863853 ICD Code: E11.9 - TYPE 2 DIABETES MELLITUS WITHOUT COMPLICATIONS Status: Chronic Current Visit: Yes Problem Details: Last HgbA1c: 7.7% per patient. Has out of area provider. Problem List Initiated/Reviewed/Updated: Yes Orders Last 24hrs: Active Orders 24 hr Category Date Time Status Admission Status [Patient Status] [ADT] Routine ADT 08/03/20 19:26 Active Blood Glucose Check, Bedside [RC] QIDACANDBED Care 08/03/20 19:28 Active Cardiac Monitoring [RC] 08,16,00 Care 08/03/20 19:26 Active Oxygen Therapy [RC] PRN Care 08/03/20 19:28 Active Ready for Discharge [RC] PER UNIT ROUTINE Care 08/04/20 11:29 Active VTE/DVT Education [RC] Per Unit Routine Care 08/03/20 19:28 Active Vital Signs [RC] 08,12,16,20,00,04 Care 08/03/20 19:28 Active Consistent Carbohydrate Diet [DIET] Diet 08/03/20 Dinner Active Acetaminophen [TylenoL] Med 08/03/20 19:28 Active 650 mg PO Q4H PRN Magnesium Oxide Med 08/04/20 09:30 Active 400 mg PO DAILY Ondansetron [Zofran] Med 08/03/20 19:28 Active 4 mg IV Q6H PRN Sodium Chloride 0.9% [Saline Flush] Med 08/03/20 18:15 Active 10 ml FLUSH ASDIRECTED PRN Peripheral IV Insertion Adult [OM.PC] Routine Oth 08/03/20 18:15 Ordered Resuscitation Status Routine Resus Stat 08/03/20 19:28 Ordered EKG 12 Lead [EK] Routine Ther 08/03/20 18:15 Ordered Medication Orders Acetaminophen (Acetaminophen 325 Mg Tab) 650 mg PO Q4H PRN PRN Reason: Pain (Mild 1-3)/fever Magnesium Oxide (Magnesium Oxide 400 Mg Tab) 400 mg PO DAILY CR Last Admin: 08/04/20 10:09 Dose: 400 mg Documented by: INEZ Ondansetron HCl (Ondansetron 4 Mg/2 Ml Sdv) 4 mg IV Q6H PRN PRN Reason: Nausea/Vomiting Sodium Chloride (Sodium Chloride 0.9% 10 Ml Syringe) 10 ml FLUSH ASDIRECTED PRN PRN Reason: Keep Vein Open Assessment/Plan Comment:: 1. Admitted for observation for chest pain. 2. Acute coronary syndrome rule out: serial troponin has been negative x 3. Last sample was lipemic so had to be sent to [facility], sample was hemolyzed so troponin was 0.115 which was at their cutoff upper limit of normal. He has remained asymptomatic since admission so likely in erroneous. Lipid panel had triglycerides of 921. Advised to restart his previous medications. He did not have his home medications with him as he came straight from work so he will take his home blood pressure medications when he gets home today. Will have him follow up with Dr Orosco this week to review labs and discuss whether to do stress test, may be residual effects from Covid infection in March. His covid test last night was negative. 3. Hypomagnesemia: Magnesium 400 mg daily given. Resume home magnesium dose. 4. Diet: Consistent carb diet. 5. DVT prophylaxis: held Lovenox since had worsening of his hematuria. He will go home today so did not order TEDs. 6. CODE STATUS: FULL. 7. This note will also serve as discharge summary. He had no further chest pain in ER or during hospitalization. He will follow up with Dr Orosco this week. Copy of his labs done here was sent with patient. - Mortality Measure Prognosis:: Good
== END 2020-08-04 12:30 | disposition home or self-care (01) ==
LOC: FB.ED 17:30 → FB.MS 19:30
PROVIDERS: ADMIT Emergency Medicine; ATTEND Family Medicine
DX: R07.9 Chest pain, unspecified (principal); I10 Essential (primary) hypertension; K21.9 Gastro-esophageal reflux disease without esophagitis; E11.9 Type 2 diabetes mellitus without complications; E78.5 Hyperlipidemia, unspecified; R31.9 Hematuria, unspecified; E83.42 Hypomagnesemia; Z20.822 Contact with and (suspected) exposure to COVID-19; Z79.82 Long term (current) use of aspirin; Z79.899 Other long term (current) drug therapy; Z98.890 Other specified postprocedural states; Z87.891 Personal history of nicotine dependence
CPT/HCPCS: 36415; 71045; 80048; 80053; 80061; 81001; 82962; 83735; 84484; 85025; 85027; 85379; 93005; 96372; 99285; A9270; J1650; U0002; G0378

== ENCOUNTER 2021-11-04 06:16 | Day surgery (SDC) | payer MEDICARE, OTHER ==
[~2021-11-04 06:16] MED LIST: Sodium Chloride 0.9% 10 ML Syringe FLUSH PRN
[2021-11-04] MEDS ORDERED: Propofol 200 MG/20 ML SDV IV ONE (06:17)
[2021-11-04] MEDS ORDERED: Lidocaine 2% 100 MG/5 ML Syringe IVPUSH ONE (06:17)
[2021-11-04] MEDS: Lactated Ringers 1,000 ML IV SCH (06:50)
== END 2021-11-04 09:47 | disposition home or self-care (01) ==
LOC: FB.SDS 06:16
PROVIDERS: ATTEND Surgery
DX: K63.5 Polyp of colon (principal); K62.89 Other specified diseases of anus and rectum; K55.20 Angiodysplasia of colon without hemorrhage; K21.00 Gastro-esophageal reflux disease with esophagitis, without bleeding; G47.30 Sleep apnea, unspecified; E11.9 Type 2 diabetes mellitus without complications; I10 Essential (primary) hypertension; Z87.891 Personal history of nicotine dependence; K42.0 Umbilical hernia with obstruction, without gangrene; D50.9 Iron deficiency anemia, unspecified; Z79.899 Other long term (current) drug therapy; Z79.84 Long term (current) use of oral hypoglycemic drugs
CPT/HCPCS: 00813-QZ; 88305; 88313; J2704; J7120